=== PATIENT | female | born 1960 | race Caucasian/White ===

== ENCOUNTER 2019-04-23 08:20 | Outpatient (CLI) | payer BC ==
--- NOTE | 2019-04-23 11:05 | MRI ---
EXAM: MRI of the abdomen without and with contrast COMPARISON: None HISTORY: Malignant neoplasm of the right breast. Family history of pancreatic cancer and genetic susc eptibility to malignant neoplasm TECHNIQUE: Multiplanar multi sequence MR images were taken of the abdomen without and with IV contras t. [An MRCP was performed.] FINDINGS: Liver: There is a 1.3 cm well-circumscribed cyst in the anterior liver.. Normal signal without dropou t on out of phase images. No abnormal enhancement. Gallbladder: Normal Common bile duct: Enlarged to 10 mm without filling defects. Adrenal glands: Unremarkable. Kidneys: No hydronephrosis. There is a 1.1 cm nonenhancing well-circumscribed focus of high T1 signal which demonstrates low T2 signal and likely represents a hyperdense/proteinaceous cyst. No abnormal areas of enhancement. Spleen: Unremarkable. Pancreas: Unremarkable. No abnormal enhancement. Retroperitoneum: No enlarged lymph nodes Bones: No marrow signal abnormality. IMPRESSION: 1. Hepatic cyst 2. Enlargement of the common bile duct is likely a reservoir effect from prior cholecystectomy 2. Left hyperdense renal cyst.
== END 2019-04-23 08:21 | disposition home or self-care (01) ==
LOC: SCSMRI 08:20
PROVIDERS: ATTEND Internal Medicine Hematology & Oncology
DX: Z15.01 Genetic susceptibility to malignant neoplasm of breast (principal); C50.111 Malignant neoplasm of central portion of right female breast; R10.9 Unspecified abdominal pain; K76.89 Other specified diseases of liver; N28.1 Cyst of kidney, acquired; Z90.49 Acquired absence of other specified parts of digestive tract; Z80.42 Family history of malignant neoplasm of prostate
CPT/HCPCS: 74183; 82565

== ENCOUNTER 2021-05-19 08:37 | Outpatient (CLI) | payer BC | END 2021-05-19 08:38 | disposition home or self-care (01) | LOC: SCSMRI 08:37 | PROVIDERS: ATTEND Internal Medicine Hematology & Oncology | DX: Z15.01 Genetic susceptibility to malignant neoplasm of breast (principal); K76.0 Fatty (change of) liver, not elsewhere classified; K76.89 Other specified diseases of liver; N28.1 Cyst of kidney, acquired; Z85.07 Personal history of malignant neoplasm of pancreas | CPT/HCPCS: 74183; 82565 ==

== ENCOUNTER 2022-06-22 08:33 | Outpatient (CLI) | payer BC | END 2022-06-22 08:34 | disposition home or self-care (01) | LOC: SCSMRI 08:33 | PROVIDERS: ATTEND Internal Medicine Hematology & Oncology | DX: C50.919 Malignant neoplasm of unspecified site of unspecified female breast (principal); Z15.01 Genetic susceptibility to malignant neoplasm of breast; Z80.0 Family history of malignant neoplasm of digestive organs; K76.0 Fatty (change of) liver, not elsewhere classified; N28.1 Cyst of kidney, acquired; K76.89 Other specified diseases of liver | CPT/HCPCS: 74183 ==

== ENCOUNTER 2022-10-12 13:33 | Outpatient (CLI) | payer BC | END 2022-10-12 13:34 | disposition home or self-care (01) | LOC: RAD 13:33 | PROVIDERS: ATTEND Internal Medicine | DX: R05.9 Cough, unspecified (principal); J18.1 Lobar pneumonia, unspecified organism | CPT/HCPCS: 71046 ==

== ENCOUNTER 2024-01-10 08:19 | Outpatient (CLI) | payer BC | END 2024-01-10 08:20 | disposition home or self-care (01) | LOC: SCSMRI 08:19 | PROVIDERS: ATTEND Internal Medicine Hematology & Oncology | DX: Z15.01 Genetic susceptibility to malignant neoplasm of breast (principal); C50.919 Malignant neoplasm of unspecified site of unspecified female breast; K76.0 Fatty (change of) liver, not elsewhere classified; N28.1 Cyst of kidney, acquired; Z80.0 Family history of malignant neoplasm of digestive organs | CPT/HCPCS: 36415; 74183; 76376; 82565 ==